=== PATIENT | male | born 1975 | race Hispanic/Latino ===

== ENCOUNTER 2021-05-24 14:04 | Emergency (ER) | payer BC ==
[~2021-05-24] VITALS: Ht 167.6 cm; Wt 91.6 kg
[2021-05-24] MEDS ORDERED: SODIUM CHLORIDE 0.9% 1000ML 1,000 ML IV STA (14:13)
[2021-05-24] MEDS ORDERED: ONDANSETRON HCL INJ 2MG/ML 2ML 2 MG/ML VIAL IV STA (14:13)
[2021-05-24] MEDS ORDERED: DICYCLOMINE HCL 20 MG/2 ML VIAL IM ONE (14:30)
[2021-05-24 14:41] LABS: BASOPHILS % 0.2 % (0.0-1.0); EOSINOPHILS % 0.2 % (0.0-6.0); HEMATOCRIT 44.9 % (38.2-49.6); HEMOGLOBIN 14.5 g/dL (14.0-18.0); LYMPHOCYTES # (AUTO) 1.5 (1.0-3.2); LYMPHOCYTES % 12.1 % (18.0-39.1); MEAN CORPUSCULAR HGB CONC 32.3 g/dL (31-35); MEAN CORPUSCULAR VOLUME 86.8 fL (81-99); MONOCYTES # (AUTO) 0.8 (0.2-0.8); MONOCYTES % 6.4 % (4.4-11.3); NEUTROPHILS # (AUTO) 9.9 (2.1-6.9); NEUTROPHILS % 80.6 % (38.7-80.0); PLATELET COUNT 271 x10e3/uL (140-360); RED BLOOD COUNT 5.17 x10e6/uL (4.3-5.7)
[2021-05-24 14:51] LABS: INR 1.01; PROTHROMBIN TIME 14.1 seconds (11.9-14.5)
[2021-05-24 14:52] LABS: PARTIAL THROMBOPLASTIN TIME 30.6 seconds (23.8-35.5)
[2021-05-24 14:58] LABS: ALBUMIN 4.1 g/dL (3.5-5.0); ANION GAP 16.1 mmol/L (8-16); CALCIUM 8.8 mg/dL (8.4-10.2); CREATININE, SERUM 0.89 mg/dL (0.72-1.25); POTASSIUM 3.1 mmol/L (3.5-5.1)
[2021-05-24 15:04] LABS: CREATINE KINASE MB 0.9 ng/mL (0-5.0)
[2021-05-24] MEDS ORDERED: ONDANSETRON HCL INJ 2MG/ML 2ML 2 MG/ML VIAL ONE (15:12)
[2021-05-24] MEDS ORDERED: POTASSIUM CHLORIDE 10MEQ EA PO ONE (15:15)
[2021-05-24 16:50] VITALS: BP 131/68
== END 2021-05-24 16:53 | disposition home or self-care (01) ==
LOC: ER 14:15
DX: R55 Syncope and collapse (principal); A05.9 Bacterial foodborne intoxication, unspecified; R11.2 Nausea with vomiting, unspecified; R19.7 Diarrhea, unspecified
CPT/HCPCS: 36415; 70450; 70486; 71045; 80053; 82550; 82553; 84484; 85025; 85610; 85730; 93005; 99284; J0500; J2405; J7030; U0002